=== PATIENT | female | born 1990 | race Caucasian/White ===

== ENCOUNTER 2018-06-28 14:34 | Emergency (ER) | payer OTHER ==
[2018-06-28] MEDS ORDERED: 0.9 % SODIUM CHLORIDE 1,000 ML IV ONE (14:37)
[2018-06-28] MEDS ORDERED: ONDANSETRON HCL/PF 4 MG/ 2ML VIAL IVP ONE ×2 (14:37→15:08)
[2018-06-28] MEDS ORDERED: PROMETHAZINE HCL 25 MG/ML VIAL IM ONE (14:41)
--- NOTE | 2018-06-28 15:05 | ED Physician Documentation ---
Nausea/Vomiting/Diarrhea - HISTORIAN Historian: patient, paramedics, other ([facility]) - HPI Stated Complaint: Withdrawl Chief Complaint: Nausea,Vomiting,Diarrhea Onset: hours Further Comments: yes (28 year old female patient from [facility] brought in via EMS with complaints of nausea and vomiting. Patient admitted herself to [facility] on 06/26/2018. Reports last used 40 hours ago - IV Fentanyl) - Associated Symptoms Vomiting: frequent Abdominal Pain: cramping, diffuse - ROS CONST: recent illness (admitted for rehab 06/26/18) CVS/RESP: denies: chest pain, shortness of breath, cough, dry cough, non- productive cough, productive cough, bloody cough, other GI/: none EYES/ENT: none MS/SKIN/LYMPH: denies: joint pain, leg swelling, rash, swollen glands, ankle swelling, other NEURO/PSYCH: none - PAST HX Past History: none Allergies/Adverse Reactions: Allergies Allergy/AdvReac Type Severity Reaction Status Date / Time No Known Allergies Allergy Verified 06/28/18 14:56 Home Medications: Ambulatory Orders Medication Instructions Recorded Buprenorphine HCl/Naloxone HCl 1 tab PO DAILY 06/28/18 [Suboxone 8 mg-2 mg Tablet] Cyclobenzaprine HCl [Flexeril] 1 tab PO TID PRN 06/28/18 Ondansetron HCl/Pf [Zofran] 2 mg PO Q6 PRN 06/28/18 chlordiazePOXIDE HCL [Librium] 1 tab PO Q4 PRN 06/28/18 chlordiazePOXIDE HCL [Librium] 2 tab PO Q4 PRN 06/28/18 chlordiazePOXIDE HCL [Librium] 3 tab PO Q4 PRN 06/28/18 chlordiazePOXIDE HCL [Librium] 4 tab PO Q4 PRN 06/28/18 - SOCIAL HX Smoking History: cigarettes Drug Use: heroin (IV Heroin), other (IV Fentanyl past 2 years) - FAMILY HX Family History: denies: none - VITAL SIGNS Vital Signs: Vital Signs Temp Pulse Resp BP Pulse Ox 96.0 F L 61 14 132/80 93 06/28/18 14:34 06/28/18 14:34 06/28/18 14:34 06/28/18 14:34 06/28/18 14:34 - REVIEWED ASSESSMENTS Nursing Assessment Reviewed: Yes Vitals Reviewed: Yes Progress - Progress Progress: Unable to place IV in arms; patient suggested foot. 24G to left foot. Patient refused lab draw multiple times while in ER, extending ER time. 1L NS given, vomiting resolved after 2nd dose of zofran. Labs reviewed; will need follow up H/H monitored. Patient refused UA; Urine HCG. Discharged with boyfriend back to [facility] ED Results Lab/Radiology - Lab Results Lab Results: Lab Results 06/28/18 06/28/18 16:05 16:05 WBC 7.90 K/ul K/ul (4.00-12.00) RBC 3.81 M/ul L M/ul (3.90-5.20) Hgb 10.7 g/dL L g/dL (11.5-16.0) Hct 32.2 % L % (34.5-46.5) MCV 84.0 fl fl (80.0-100.0) MCH 28.2 pg pg (28.0-34.0) MCHC 33.4 g/dL g/dL (30.0-36.0) RDW 13.1 % % (11.3-14.3) Plt Count 309 K/mm3 K/mm3 (130-400) Neut % (Auto) 83.9 % H % (39.0-79.0) Lymph % (Auto) 12.9 % L % (16.0-50.0) [place] % (Auto) 2.0 % % (0.0-11.0) Eos % (Auto) 1.0 % % (0.0-6.8) Baso % (Auto) 0.2 % % (0.0-1.5) Neut # (Auto) 6.7 # k/uL # k/uL (1.4-7.7) Lymph # (Auto) 1.0 # k/uL # k/uL (0.6-4.0) [place] # (Auto) 0.2 # k/uL # k/uL (0.0-0.9) Eos # (Auto) 0.1 # k/uL # k/uL (0.0-0.6) Baso # (Auto) 0.0 # k/uL # k/uL (0.0-0.5) Sodium 138 mmol/L mmol/L (137-145) Potassium 4.1 mmol/L mmol/L (3.5-5.1) Chloride 108 mmol/L H mmol/L (98-107) Carbon Dioxide 23 mmol/L mmol/L (22-30) BUN 20 mg/dL H mg/dL (7-17) Creatinine 0.68 mg/dL mg/dL (0.52-1.04) Estimated Creat Clear 134 Est GFR ( Amer) > 60 (60 - ) Est GFR (Non-Af Amer) > 60 (60 - ) Glucose 108 mg/dL H mg/dL (74-106) Calcium 8.5 mg/dL mg/dL (8.4-10.2) Total Bilirubin 0.4 mg/dL mg/dL (0.2-1.3) AST 25 U/L U/L (15-46) ALT 17 U/L U/L (0-35) Alkaline Phosphatase 72 U/L U/L (38-126) Total Protein 7.2 g/dL g/dL (6.3-8.2) Albumin 3.6 g/dL g/dL (3.5-5.0) - Orders Orders: ED Orders Category Date Time Status Further Nursing Orders 1T Care 06/28/18 14:55 Active CBC/PLATELET/DIFF Stat Lab 06/28/18 16:05 Completed CMP Stat Lab 06/28/18 16:05 Completed URINE HCG Stat Lab 06/28/18 Ordered 0.9 % Sodium Chloride [Normal Saline] 1,000 ml Med 06/28/18 14:37 Discontinued IV NOW Ketorolac Tromethamine [Toradol] Med 06/28/18 15:08 Discontinued 30 mg IVP NOW ONE Ondansetron HCl/Pf [Zofran] Med 06/28/18 14:37 Discontinued 4 mg IVP NOW ONE Ondansetron HCl/Pf [Zofran] Med 06/28/18 15:08 Discontinued 4 mg IVP NOW ONE Promethazine HCl [Phenergan] Med 06/28/18 14:41 Discontinued 25 mg IM NOW ONE Nausea Physical Exam - EXAM General Appearance: mild distress EENT: eye inspection normal, LUBNA Respiratory: no resp distress, chest non-tender, breath sounds normal CVS: heart sounds normal, equal pulses, no murmur, no gallop, PMI nml, no JVD, no friction rub, bradycardia Abdomen: no organomegaly, tenderness (generalized) Skin: warm/dry, normal color, other (multiple ecchmotic areas on bilateral arms; track coronado noted. 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 Neuro/Psych: oriented X3, motor nml, sensation nml, mood/affect nml Discharge Clincal Impression: Withdrawal from opioids Nausea & vomiting Qualifiers: Vomiting type: unspecified Vomiting Intractability: non-intractable Qualified Code(s): R11.2 - Nausea with vomiting, unspecified Anemia Qualifiers: Anemia type: unspecified type Qualified Code(s): D64.9 - Anemia, unspecified Referrals: Primary Doctor,No [Primary Care Provider] - 2 Days Additional Instructions: Diet: Clear liquids Sprite/7-up Juices apple, white grape Gatorade/Powerade Jello Popsicles When tolerating clear liquids, advance to bland/brat diet - such as crackers, rice, Bananas, apples/applesauce or toast Return to the emergency department or call your doctor, if you are having severe abdominal pain, fever >101.0, or if there is blood in the vomit or diarrhea, or you cannot keep down liquids or solid food. Condition: Stable Disposition: 01 HOME, SELF-CARE Decision to Admit: NO Decision Time: 16:45
[2018-06-28] MEDS ORDERED: KETOROLAC TROMETHAMINE 30 MG/1ML VIAL IVP ONE (15:08)
[2018-06-28 16:21] LABS: BASOPHILS % 0.2 % (0.0-1.5); MEAN CORPUSCULAR HEMOGLOBIN 28.2 pg (28.0-34.0); NEUTROPHILS # 6.7 # k/uL (1.4-7.7)
[2018-06-28 16:34] LABS: eGFR (Non-African) > 60
[2018-06-28 17:56] VITALS: BP 133/72
== END 2018-06-28 17:30 | disposition home or self-care (01) ==
LOC: ED 14:34
DX: F11.23 Opioid dependence with withdrawal (principal); R11.2 Nausea with vomiting, unspecified; D64.9 Anemia, unspecified
CPT/HCPCS: 36415; 80053; 85025; 96374; 96375; 99283; 99284; J1885; J2405; J7030; S1016